=== PATIENT | male | born 1970 | race Caucasian/White ===

== ENCOUNTER 2018-04-05 06:50 | Emergency (ER) | payer MEDICAID ==
[~2018-04-05] VITALS: Ht 172.7 cm; Wt 107.3 kg
[2018-04-05 07:03] VITALS: BP 155/95; Ht 172.7 cm; Wt 107.3 kg
[2018-04-05] MEDS ORDERED: LISINOPRIL10 MG PO (07:06)
[2018-04-05] MEDS ORDERED: TRILEPTAL300 MG PO (07:07)
[2018-04-05] MEDS ORDERED: LITHIUM CARBON300 MG PO (07:07)
[2018-04-05] MEDS ORDERED: PROZAC20 MG PO (07:08)
[2018-04-05 07:53] LABS: BASOPHILS 0.4 % (0-2); EOSINOPHILS 1.9 % (0-7); HEMATOCRIT 44.3 % (42.0-54.0); HEMOGLOBIN 14.7 g/dL (13.5-17.5); IMMATURE GRANULOCYTES 0.2 % (0-5); LYMPHOCYTES 14.3 % (15-50); MCH 29.3 pg (26.0-34.0); MCHC 33.2 g/dL (31.0-37.0); MCV 88.2 fL (80.0-100.0); MEAN PLATELET VOLUME 10.4 fL (7.4-10.4); MONOCYTES 6.7 % (2-11); NEUTROPHILS 76.5 % (40-80); PLATELET COUNT 225 10x3/uL (130-400); RBC 5.02 10x6/uL (4.20-6.10); RDW 13.8 % (11.5-14.5); WBC 16.2 10x3/uL (4.8-10.8)
[2018-04-05 08:01] LABS: LITHIUM 0.79 mmol/L (0.60-1.20); SALICYLATES 2.6 mg/dL (2.8-20.0)
[2018-04-05 08:02] LABS: UDS - AMPHET NEGATIVE QUAL (NEGATIVE); UDS - BARB NEGATIVE QUAL (NEGATIVE); UDS - BENZO NEGATIVE QUAL (NEGATIVE); UDS - COCAINE NEGATIVE QUAL (NEGATIVE); UDS - OPIATE NEGATIVE QUAL (NEGATIVE); UDS - PCP NEGATIVE QUAL (NEGATIVE); UDS - THC POSITIVE QUAL (NEGATIVE)
[2018-04-05 08:10] LABS: APPEARANCE CLEAR (CLEAR); BILIRUBIN NEGATIVE (NEGATIVE); COLOR YELLOW (YELLOW); GLUCOSE NEGATIVE (NEGATIVE); KETONE MODERATE mg/dL (NEGATIVE); NITRITE NEGATIVE (NEGATIVE); PROTEIN NEGATIVE (NEGATIVE); UROBILINOGEN NORMAL (NORMAL)
[2018-04-05 08:11] LABS: BACTERIA MODERATE /hpf (NONE SEEN); EPITHELIAL CELLS 0-5 /hpf (0-5); MUCUS <1+ /lpf (NONE SEEN); SPERMATOZOA PRESENT /hpf (NONE SEEN); WHITE CELLS - URINE 0-5 /hpf (0-5)
[2018-04-05 08:14] LABS: ALBUMIN 3.9 g/dL (3.4-5.0); ALKALINE PHOSPHATASE 114 U/L (46-116); ALT (SGPT) 35 U/L (10-68); BILIRUBIN - TOTAL 0.45 mg/dL (0.2-1.3); CALC OSMOLALITY 277 mosm/kg (275-300); CALCIUM 9.2 mg/dL (8.5-10.1); CARBON DIOXIDE 19.7 mmol/L (21.0-32.0); CHLORIDE - SERUM 105 mmol/L (98-107); CREATININE - SERUM 0.9 mg/dL (0.6-1.3); GLUCOSE 98 mg/dL (74-106); POTASSIUM - SERUM 3.8 mmol/L (3.5-5.1); PROTEIN - SERUM 7.5 g/dL (6.4-8.2); SODIUM 140 mmol/L (136-145); UREA NITROGEN 10 mg/dL (7-18); eGFR NON AFRICAN AMERICAN > 90 mL/min (90-120)
[2018-04-05 08:16] LABS: MAGNESIUM - SERUM 1.8 mg/dL (1.8-2.4)
== END 2018-04-05 12:14 ==
LOC: D.ER 06:50
PROVIDERS: Family Medicine
DX: R45.851 Suicidal ideations (principal); F31.9 Bipolar disorder, unspecified; E86.0 Dehydration; D72.829 Elevated white blood cell count, unspecified